=== PATIENT | female | born 1985 | race Caucasian/White ===

== ENCOUNTER 2017-05-28 19:59 | Emergency (ER) | payer OTHER ==
[~2017-05-28] VITALS: Ht 167.6 cm; Wt 61.2 kg
[~2017-05-28 19:59] MED LIST: CLARITIN10 MG PO; COLACE100 MG PO; IBU800 M1 PO; IRON TABLETS325 MG PO; PERCOCET 325 MG1 TA2 PO; PRENATAL VITAMINS; PROVENTIL0.09 MG/AC IH; TRIMOX500 MG PO; ZITHROMAX Z PA250 MG PO
[2017-05-28] MEDS ORDERED: Motrin,Rufen800 MG PO (21:59)
[2017-05-28] MEDS ORDERED: Orphenadrine C100 MG PO (21:59)
== END 2017-05-28 22:16 | disposition home or self-care (01) ==
LOC: ED 19:59
DX: S39.012A Strain of muscle, fascia and tendon of lower back, initial encounter (principal); S16.1XXA Strain of muscle, fascia and tendon at neck level, initial encounter; S46.912A Strain of unspecified muscle, fascia and tendon at shoulder and upper arm level, left arm, initial encounter; V89.2XXA Person injured in unspecified motor-vehicle accident, traffic, initial encounter; Y93.89 Activity, other specified; Y92.413 State road as the place of occurrence of the external cause; Y99.9 Unspecified external cause status

== ENCOUNTER → 2023-01-25 | Outpatient (CLI) | payer BC ==
[~2023-01-25] MED LIST changes: +Motrin,Rufen800 MG PO; +Orphenadrine C100 MG PO
== END | disposition home or self-care (01) ==
LOC: RAD 10:38
PROVIDERS: ATTEND Nurse Practitioner Family
DX: M25.561 Pain in right knee (principal)